=== PATIENT | male | born 1985 | race Caucasian/White ===

== ENCOUNTER 2022-05-08 12:17 | Emergency (ER) | payer OTHER, SELFPAY ==
[2022-05-08 12:24] VITALS: PULSE 70; RESP 20; TEMP 36; O2SAT 98; BMI 25.8
--- NOTE | 2022-05-08 15:32 | ED.EYEPROB ---
HPI - Eye Problem General Chief complaint: Eye Problems Stated complaint: Wood in Left Eye Time Seen by Provider: 05/08/22 15:22 Source: patient Mode of arrival: Ambulatory History of Present Illness HPI Narrative: This 37-year-old was using a chain saw cutting wood today when some of the saw dust flew back into his face. He thought that he had cleared everything out of his face and eyes but his mother told him later that she could see some material in the left eye. He could see it as well and tried to remove it multiple times with irrigation but was unsuccessful. He has no vision change. No eye pain. Very mild foreign body sensation. No previous eye disease. Related Data Allergies Allergy/AdvReac Type Severity Reaction Status Date / Time Penicillins Allergy Unknown Verified 05/08/22 12:24 Review of Systems Review of Systems Narrative: Review of systems is otherwise unremarkable Patient History Substance Use Type: does not use Exam Initial Vital Signs Initial Vital Signs: Vital Signs Temperature 96.8 F L 05/08/22 12:24 Pulse Rate 70 05/08/22 12:24 Respiratory Rate 20 05/08/22 12:24 Pulse Oximetry 98 05/08/22 12:24 Oxygen Delivery Method 05/08/22 12:24 Procedures Foreign Body EYE Time of procedure: 15:33 Time Out performed: No Location: eye (L) Topical anesthetic used: proparacaine Foreign body: wood Evidence of corneal penetration: No Technique: cotton tip swab Procedure performed under: direct visualization with magnification Patient tolerated procedure: well Course Vital Signs Vital signs: Vital Signs - 8 hr 05/08/22 12:24 Temperature 96.8 F L Pulse Rate 70 Respiratory Rate 20 Pulse Oximetry 98 Oxygen Delivery Method Room Air MDM - Eye Problem MDM Narrative Medical decision making narrative: Small foreign body easily removed from the 4 o'clock position on the conjunctiva after the administration of proparacaine Discharge Plan Departure Patient Disposition: Home Clinical Impression: Foreign body in eye Activity Restrictions/Additional Instructions: You had a little bit of wood debris in the left eye that we were able to remove after anesthetic. No other foreign bodies identified. No specific follow-up is needed unless you have increasing pain, redness or any visual disturbance in that left eye. Referrals: Miscellaneous,Doctor [Primary Care Provider] -
== END 2022-05-08 15:41 | disposition home or self-care (01) ==
PROVIDERS: Emergency Provider Family Medicine Addiction Medicine
DX: T15.92XA Foreign body on external eye, part unspecified, left eye, initial encounter (principal)
CPT/HCPCS: 99281